=== PATIENT | female | born 1985 | race Caucasian/White ===

== ENCOUNTER 2019-08-10 10:49 | Emergency (ER) | payer OTHER ==
[~2019-08-10] VITALS: Ht 165.1 cm; Wt 63.5 kg
[2019-08-10] MEDS ORDERED: TUSSI PRES-B L480 ML PO (16:05)
[2019-08-10] MEDS ORDERED: ZITHROMAX500 MG PO (16:05)
[2019-08-10] MEDS ORDERED: ZYRTEC10 M3 PO (16:10)
== END 2019-08-10 16:12 | disposition home or self-care (01) ==
LOC: ER 10:49
DX: B34.9 Viral infection, unspecified (principal); B96.0 Mycoplasma pneumoniae [M. pneumoniae] as the cause of diseases classified elsewhere